=== PATIENT | female | born 1970 | race Caucasian/White ===

== ENCOUNTER 2018-04-05 23:13 | Emergency (ER) | payer OTHER ==
[~2018-04-05] VITALS: Ht 162.6 cm; Wt 94.8 kg
[2018-04-05 23:19] VITALS: TEMP 36.7; Ht 162.6 cm; Wt 94.8 kg
[2018-04-06 00:11] LABS: BASO % 0.6 %; BASO ABS # 0.04 K/uL (0-0.2); EOS % 4.7 %; EOS ABS # 0.31 K/uL (0-0.5); HEMOGLOBIN 12.7 g/dL (12.0-16.0); IG# 0.01 K/uL (0.00-0.02); LYMPH % 34.9 %; MEAN CORPUSCULAR HEMOGLOBIN 28.5 pg (25-34); MEAN CORPUSCULAR HGB CONC 34.3 g/dl (32-36); MEAN PLATELET VOLUME 9.5 fL (7.4-10.4); MONO % 8.3 %; MONO ABS # 0.55 K/uL (0.11-0.59); NEUT % 51.3 %; NEUT ABS # 3.38 K/uL (1.4-6.5); PLATELET COUNT 232 K/uL (130-400); RED CELL DISTRIBUTION WIDTH CV 13.5 % (11.5-14.5); RED CELL DISTRIBUTION WIDTH SD 41.3 fL (36.4-46.3); WHITE BLOOD COUNT 6.59 K/uL (4.8-10.8)
[2018-04-06 00:34] LABS: BLOOD UREA NITROGEN 13 mg/dl (7-18); CALCIUM 8.7 mg/dl (8.5-10.1); CARBON DIOXIDE 24 mmol/L (21-32); CREATININE 0.87 mg/dl (0.60-1.20); GLUCOSE 101 mg/dl (70-99); POTASSIUM 3.7 mmol/L (3.5-5.1); SODIUM 139 mmol/L (136-145)
--- NOTE | 2018-04-06 01:01 | EMERGENCY ROOM VISIT NOTE ---
History Report prepared by Asha: Belem Deras Under the Supervision of: Dr. Ja Krishna D.O. First contact with patient: 23:44 Chief Complaint: CHEST PAIN Stated Complaint: CHEST PAIN,BACK PAIN,CHILLS,PAIN,HTN History of Present Illness The patient is a 47 year old female who presents to the Emergency Room with complaints of worsening chest pain that started this evening. The patient notes that her pain is in the center of her chest and in the back of her shoulder. The patient also complains of having chills but denies leg pain/swelling. The patient reports that she feels as if she is having withdrawal symptoms from Suboxone although she's been off it for a week. She patient states she has a history of chronic back and neck pain. Source of History: patient Onset: this evening Position: chest Quality: other (pain) Timing: worsening Associated Symptoms: + chills Note: Denies: Leg pain/swelling Review of Systems See HPI for pertinent positives & negatives. A total of 10 systems reviewed and were otherwise negative. Past Medical & Surgical Medical Problems: (1) Chronic back pain (2) Chronic neck pain Family History No pertinent family history Social History Smoking Status: Current Every Day Smoker Physical Exam Vital Signs Date Time Temp Pulse Resp B/P (MAP) Pulse Ox O2 Delivery O2 Flow Rate FiO2 04/05/18 23:41 62 04/05/18 23:19 36.7 76 20 131/82 99 Room Air Physical Exam CONSTITUTIONAL/VITAL SIGNS: Reviewed / noted above. GENERAL: Non-toxic in appearance. INTEGUMENTARY: Warm, dry, and [place]. HEAD: Normocephalic. EYES: without scleral icterus or trauma. ENT/OROPHARYNX: clear and moist. LYMPHADENOPATHY/NECK: Is supple without lymphadenopathy or meningismus. RESPIRATORY: Lungs clear and equal. CARDIOVASCULAR: Regular rate and rhythm. GI/ABDOMEN: Soft and nontender. No organomegaly or pulsatile mass. No rebound or guarding. Normal bowel sounds. EXTREMITIES: Warm and well perfused. BACK: No CVA tenderness. NEUROLOGICAL: Intact without focal deficits. PSYCHIATRIC: normal affect. MUSCULOSKELETAL: Normally developed with good muscle tone. Medical Decision & Procedures ER Provider Diagnostic Interpretation: Chest x-ray: per my interpretation is negative for acute disease. No pneumonia or pneumothorax. Laboratory Results 04/05/18 23:55 Red Blood Count 4.46, Mean Corpuscular Volume 83.0, Mean Corpuscular Hemoglobin 28.5, Mean Corpuscular Hemoglobin Concent 34.3, Mean Platelet Volume 9.5, Neutrophils (%) (Auto) 51.3, Lymphocytes (%) (Auto) 34.9, Monocytes (%) (Auto) 8.3, Eosinophils (%) (Auto) 4.7, Basophils (%) (Auto) 0.6, Neutrophils # (Auto) 3.38, Lymphocytes # (Auto) 2.30, Monocytes # (Auto) 0.55, Eosinophils # (Auto) 0.31, Basophils # (Auto) 0.04 04/05/18 23:55 Test 04/05/18 23:55 White Blood Count 6.59 K/uL (4.8-10.8) Red Blood Count 4.46 M/uL (4.2-5.4) Hemoglobin 12.7 g/dL (12.0-16.0) Hematocrit 37.0 % (37-47) Mean Corpuscular Volume 83.0 fL (80-100) Mean Corpuscular Hemoglobin 28.5 pg (25-34) Mean Corpuscular Hemoglobin Concent 34.3 g/dl (32-36) Platelet Count 232 K/uL (130-400) Mean Platelet Volume 9.5 fL (7.4-10.4) Neutrophils (%) (Auto) 51.3 % Lymphocytes (%) (Auto) 34.9 % Monocytes (%) (Auto) 8.3 % Eosinophils (%) (Auto) 4.7 % Basophils (%) (Auto) 0.6 % Neutrophils # (Auto) 3.38 K/uL (1.4-6.5) Lymphocytes # (Auto) 2.30 K/uL (1.2-3.4) Monocytes # (Auto) 0.55 K/uL (0.11-0.59) Eosinophils # (Auto) 0.31 K/uL (0-0.5) Basophils # (Auto) 0.04 K/uL (0-0.2) RDW Standard Deviation 41.3 fL (36.4-46.3) RDW Coefficient of Variation 13.5 % (11.5-14.5) Immature Granulocyte % (Auto) 0.2 % Immature Granulocyte # (Auto) 0.01 K/uL (0.00-0.02) Anion Gap 12.0 mmol/L (3-11) Est Creatinine Clear Calc Drug Dose 87.4 ml/min Estimated GFR () 90.7 Estimated GFR (Non- 78.2 BUN/Creatinine Ratio 14.5 (10-20) Calcium Level 8.7 mg/dl (8.5-10.1) Troponin I < 0.015 ng/ml (0-0.045) Laboratory results as stated above per my review. ECG Per My Interpretation Indication: chest pain Rate (beats per minute): 66 Rhythm: normal sinus Findings: no ectopy, other (no ST elevation) ED Course 2345: Previous medical records were reviewed. The patient was evaluated in room B10. A complete history and physical examination was performed. 0102: On reevaluation, the patient is resting. I discussed the results and findings with the patient. She verbalized agreement of the treatment plan. The patient was discharged home. Medical Decision the differential was considered includes acute myocardial infarction, acute coronary syndrome, myocarditis, pericarditis, pericardial effusions /tamponad, esophageal perforation, thoracic aortic dissection, pulmonary embolism, pneumonia, pneumothorax, pancreatitis, shingles, acute cholecystitis, perforated abdominal viscus. This is a 47-year-old female who presents to the ED with a chief complaint of chest discomfort. The patient states that the pain started on the left-hand side. She reports that she feels that she might be going through Suboxone withdrawal. She is currently at [facility] and has not had Suboxone for at least 10 or 11 days. She reports that she has chronic pain issues. They sent her in because of her chest pain to make sure it was not anything serious. Her physical exam was normal and her vital signs are normal. Troponin was negative , PRP is normal and a CBC was normal. Chest x-ray did not show acute disease. Her vital signs are stable. She is felt to be stable for discharge. Medication Reconcilliation Current Medication List: was personally reviewed by me Blood Pressure Screening Patient's blood pressure: Normal blood pressure Impression Primary Impression: Substernal precordial chest pain Scribe Attestation The scribe's documentation has been prepared under my direction and personally reviewed by me in its entirety. I confirm that the note above accurately reflects all work, treatment, procedures, and medical decision making performed by me. Departure Information Dispostion Home / Self-Care Referrals No Doctor, Assigned (PCP) Forms Call Back Authorization, HOME CARE DOCUMENTATION FORM, IMPORTANT VISIT INFORMATION Patient Instructions Chest Pain - [facility], Replaced By [facility] Additional Instructions Your test results today were normal. Follow-up with your doctor for further care and evaluation in 1-2 days. Return to the emergency department for worsening or new symptoms or any concerns. You have been examined and treated today on an emergency basis only. This is not a substitute for, or an effort to provide, complete comprehensive medical care. It is impossible to recognize and treat all injuries or illnesses in a single emergency department visit. It is therefore important that you follow up closely with your doctor. Call as soon as possible for an appointment.
[2018-04-06 01:08] VITALS: BP 128/80; PULSE 60; O2SAT 99
--- NOTE | 2018-04-06 06:21 | DIAGNOSTIC IMAGING REPORT ---
CHEST ONE VIEW PORTABLE CLINICAL HISTORY: 47 years-old Female presenting with Evaluate Fever/Sepsis, back pain, chills, chest pain. TECHNIQUE: Portable upright AP view of the chest was obtained. COMPARISON: None. FINDINGS: Cardiac silhouette mildly enlarged. Mild bronchial wall thickening may be present. No focal opacity. No large effusion or pneumothorax. Anterior cervical fusion hardware. The right inferior screw appears to have backed out. Upper abdomen normal. IMPRESSION: 1. Mild cardiomegaly suggested. 2. Mild bronchial wall thickening may be present. This could suggest mild congestive change or bronchitis/bronchiolitis. 3. Right inferior most screw at the anterior cervical fusion hardware appears to have backed out. Consider CT of the cervical spine for better characterization of possible hardware complication. The report will be called/faxed according to standard departmental protocol. Electronically signed by: Rupesh Roldan M.D. 04/06/2018 6:19 AM Dictated Date/Time: 04/06/2018 6:16 AM
== END 2018-04-06 01:09 | disposition home or self-care (01) ==
LOC: C.EDB 23:15
DX: R07.2 Precordial pain (principal); R68.83 Chills (without fever); M54.2 Cervicalgia; G89.29 Other chronic pain; F17.200 Nicotine dependence, unspecified, uncomplicated